=== PATIENT | male | born 1950 | race Caucasian/White ===

== ENCOUNTER 2017-11-12 14:00 | Emergency (ER) | payer MEDICARE ==
[~2017-11-12] VITALS: Ht 177.8 cm; Wt 105.6 kg
[2017-11-12] MEDS ORDERED: SODIUM CHLORIDE FLUSH 10ML SYR IVF ONE (14:30)
[2017-11-12] MEDS ORDERED: SODIUM CHLORIDE 0.9% 1,000ML IVBOLUS ONE (14:30)
[2017-11-12 14:48] LABS: BASOPHILS # (AUTO) 0.04 x10^3/uL (0-0.1); BASOPHILS % (AUTO) 0 % (0-1); EOSINOPHILS # (AUTO) 0.12 x10^3/uL (0-0.4); EOSINOPHILS % (AUTO) 1 % (1-7); LYMPHOCYTES # (AUTO) 2.56 x10^3/uL (1-3.4); LYMPHOCYTES % (AUTO) 22 % (22-44); MD NO; MEAN CORPUSCULAR HEMOGLOBIN 26.4 pg (27.5-34.5); MEAN CORPUSCULAR HGB CONC 32.6 g/dL (33.2-36.2); MEAN CORPUSCULAR VOLUME 80.8 fL (81-97); MEAN PLATELET VOLUME 10.7 fL (7.4-10.4); MONOCYTES # (AUTO) 0.52 x10^3/uL (0.2-0.8); MONOCYTES % (AUTO) 5 % (2-9); NEUTROPHILS # (AUTO) 8.53 x10^3/uL (1.8-6.8); NEUTROPHILS % (AUTO) 72 % (42-75); PLATELET COUNT 231 x10^3/uL (130-400); RED BLOOD COUNT 5.59 x10^6/uL (4.38-5.82); RED CELL DISTRIBUTION WIDTH 16.8 % (9.4-14.8)
[2017-11-12] MEDS ORDERED: GLIP10TA13 PO (14:54)
[2017-11-12] MEDS ORDERED: METH2.5T PO (14:54)
[2017-11-12] MEDS ORDERED: METO25TA35 PO (14:54)
[2017-11-12] MEDS ORDERED: OXYC5CAP2 PO (14:54)
[2017-11-12] MEDS ORDERED: ASPI-515 PO (14:54)
[2017-11-12] MEDS ORDERED: GABA600T2 PO (14:54)
[2017-11-12] MEDS ORDERED: [UNRECOGNIZED DRUG - OTHER] SQ (14:54)
[2017-11-12] MEDS ORDERED: NORT10CA PO (14:54)
[2017-11-12 14:59] LABS: ALANINE AMINOTRANSFERASE 29 U/L (12-78); ALBUMIN 3.5 g/dL (3.4-5.0); ANION GAP 8 mmol/L (5-15); CALCIUM 9.9 mg/dL (8.5-10.1); CHLORIDE 103 mmol/L (98-107); CREATININE 1.66 mg/dL (0.7-1.3)
[2017-11-12 15:03] LABS: ALKALINE PHOSPHATASE 93 U/L (45-117); BILIRUBIN,TOTAL 0.6 mg/dL (0.2-1.0); TOTAL PROTEIN 7.7 g/dL (6.4-8.2); TROPONIN I < 0.015 ng/mL (0.000-0.045)
[2017-11-12 16:49] VITALS: BP 103/68
== END 2017-11-12 17:06 | disposition home or self-care (01) ==
LOC: ED 17:00
DX: R06.00 Dyspnea, unspecified (principal); I10 Essential (primary) hypertension; R55 Syncope and collapse; E11.9 Type 2 diabetes mellitus without complications; I25.10 Atherosclerotic heart disease of native coronary artery without angina pectoris; R42 Dizziness and giddiness; Z87.891 Personal history of nicotine dependence
CPT/HCPCS: 36415; 71046; 80053; 84484; 85025; 93005; 96360; 99285; J7030

== ENCOUNTER → 2020-04-12 | Outpatient (CLI) | payer MEDICARE ==
[~2020-04-12] MED LIST: ACET325T14 PO; ALLO300T PO; APIX5TAB PO; ASPI-515 PO; GABA600T7 PO; GLIP10TA13 PO; LISI2.5T PO; METH2.5T PO; METO25TA35 PO; NORT10CA PO; OXYC5CAP2 PO; [UNRECOGNIZED DRUG - OTHER] SQ
== END | disposition home or self-care (01) ==
LOC: CVU 06:40
PROVIDERS: ATTEND Genetic Counselor, MS
DX: I08.3 Combined rheumatic disorders of mitral, aortic and tricuspid valves (principal); I48.91 Unspecified atrial fibrillation
CPT/HCPCS: 93306

== ENCOUNTER 2021-02-10 09:58 | Outpatient (CLI) | payer MEDICARE ==
[~2021-02-10 09:58] MED LIST changes: -ASPI-515 PO; +ASPI-963 PO; -LISI2.5T PO; +LISI2.5T12 PO
[2021-02-10 10:41] LABS: BASOPHILS % (AUTO) 1 % (0-1); EOSINOPHILS % (AUTO) 2 % (1-7); LYMPHOCYTES % (AUTO) 17 % (22-44); MEAN CORPUSCULAR HEMOGLOBIN 31.2 pg (27.5-34.5); MEAN CORPUSCULAR HGB CONC 34.1 g/dL (33.2-36.2); MEAN PLATELET VOLUME 9.5 fL (7.4-10.4); MONOCYTES % (AUTO) 11 % (2-9); NEUTROPHILS % (AUTO) 70 % (42-75); PLATELET COUNT 149 x10^3/uL (130-400); RED BLOOD COUNT 4.79 x10^6/uL (4.38-5.82)
[2021-02-10 10:46] LABS: ALBUMIN 3.4 g/dL (3.4-5.0); ANION GAP 6 mmol/L (5-15); CALCIUM 8.6 mg/dL (8.5-10.1); CHLORIDE 109 mmol/L (98-107)
[2021-02-10 11:00] LABS: ALANINE AMINOTRANSFERASE 26 U/L (12-78); ALKALINE PHOSPHATASE 87 U/L (45-117); BILIRUBIN,TOTAL 0.9 mg/dL (0.2-1.0); CHOL/HDL RATIO 3.1; CHOLESTEROL, TOTAL 91 mg/dL (140-239); CREATININE 0.82 mg/dL (0.7-1.3); HDL CHOL % 32 % (26-37); HDL CHOLESTEROL (DIRECT) 29 mg/dL (40-60); LDL CHOLESTEROL,CALCULATED 38 mg/dL (54-169); LDL/HDL RATIO 1.3 (0.5-3.0); TOTAL PROTEIN 7.1 g/dL (6.4-8.2); TRIGLYCERIDES 120 mg/dL (50-200); VLDL CHOLESTEROL 24 mg/dL (0-25)
== END 2021-02-10 23:59 | disposition home or self-care (01) ==
LOC: LAB 09:58
PROVIDERS: ATTEND Internal Medicine
DX: E11.29 Type 2 diabetes mellitus with other diabetic kidney complication (principal); E11.65 Type 2 diabetes mellitus with hyperglycemia; I27.0 Primary pulmonary hypertension; R53.83 Other fatigue
CPT/HCPCS: 36415; 80053; 80061; 82306; 83036; 84443; 85025